=== PATIENT | male | born 1990 ===

== ENCOUNTER 2017-11-07 23:12 | Emergency (ER) | payer SELFPAY, OTHER ==
[2017-11-08] MEDS: DEXAMETHASONE 10 MG/ML 1 ML INJ IM (03:08)
[2017-11-08] MEDS: IBUPROFEN 600 MG TAB PO (03:08)
[2017-11-08] MEDS: ALBUTEROL 0.5% (NEB) 2.5 MG/0.5 ML AMP INH ×2 (03:14→04:56)
[2017-11-08] MEDS: IPRATROPIUM (NEB) 0.5 MG/2.5 ML AMP NEB (03:14)
== END 2017-11-08 06:27 | disposition home or self-care (01) ==
LOC: FTE 23:12
DX: J45.51 Severe persistent asthma with (acute) exacerbation (principal); F17.210 Nicotine dependence, cigarettes, uncomplicated
CPT/HCPCS: 94644; 94645; 96372; 99284-25